=== PATIENT | male | born 1960 | race Caucasian/White ===

== ENCOUNTER 2020-09-21 14:41 | Emergency (ER) | payer BC ==
[~2020-09-21] VITALS: Wt 81.6 kg
[2020-09-21 15:45] LABS: BILIRUBIN Negative (Negative); BLOOD Negative (Negative); CLARITY Clear (Clear); COLOR Yellow (Yellow); GLUCOSE Negative (Negative); KETONE Negative (Negative); LEUKO ESTERASE Trace (Negative); NITRITE Negative (Negative); PH 5.5 (4.5-8.0); UROBILINOGEN 0.2 E.U./dl (0.0-1.0)
[2020-09-21 15:51] LABS: BACTERIA 1+; EPITHELIAL CELLS 0-2
[2020-09-21] MEDS ORDERED: NAPROSYN500 MG PO (16:30)
[2020-09-21] MEDS ORDERED: TYLENOL325 M1 PO (16:30)
[2020-09-21] MEDS ORDERED: CYCLOBENZAPRINE10 MG PO (16:30)
== END 2020-09-21 16:56 | disposition home or self-care (01) ==
LOC: ED 14:41
PROVIDERS: Emergency Medicine
DX: M54.41 Lumbago with sciatica, right side (principal); F17.200 Nicotine dependence, unspecified, uncomplicated

== ENCOUNTER → 2020-11-05 | Outpatient (CLI) | payer BC ==
[~2020-11-05] MED LIST: CYCLOBENZAPRINE10 MG PO; NAPROSYN500 MG PO; TYLENOL325 M1 PO
== END | disposition home or self-care (01) ==
LOC: COVID19 16:44
PROVIDERS: ATTEND Internal Medicine
DX: Z11.52 Encounter for screening for COVID-19 (principal)

== ENCOUNTER → 2022-11-02 | Outpatient (CLI) | payer SELFPAY | END | disposition home or self-care (01) | LOC: RESCLI 08:30 | PROVIDERS: ATTEND Emergency Medicine | DX: I50.20 Unspecified systolic (congestive) heart failure (principal); I48.91 Unspecified atrial fibrillation; J44.9 Chronic obstructive pulmonary disease, unspecified; E78.5 Hyperlipidemia, unspecified; Z98.890 Other specified postprocedural states; F17.210 Nicotine dependence, cigarettes, uncomplicated; Z79.01 Long term (current) use of anticoagulants; Z79.899 Other long term (current) drug therapy ==